=== PATIENT | male | born 1960 | race Caucasian/White ===

== ENCOUNTER 2016-05-24 10:44 | Day surgery (SDC) | payer OTHER ==
[2016-05-24] VITALS (12 sets, daily range): BP systolic 118–165; BP diastolic 71–100; PULSE 54–74; RESP 12–19; Ht 162.6 cm; Wt 69.2 kg
[~2016-05-24] VITALS: Ht 162.6 cm; Wt 69.2 kg
[~2016-05-24 10:44] MED LIST: CEFAZOLIN 1 GM INJ ONE; CEFAZOLIN 1 GM/50 ML (PMX) 50 ML IVPB ONE; CYCL-319 PO; GABA300C16 PO; ROCURONIUM 50 MG INJ ONE
[2016-05-24 11:54] LABS: ADD SCAN DIFF NO
[2016-05-24 12:07] LABS: BASOPHILS % 0.2 % (0.0-2.0); EOSINOPHILS # 0.1 10^3/ul (0.0-0.5); EOSINOPHILS % 1.4 % (0.0-7.0); HEMATOCRIT 41.9 % (42.0-52.0); HEMOGLOBIN 14.3 g/dl (14.0-18.0); LYMPHOCYTES # 1.9 10^3/ul (0.8-2.9); LYMPHOCYTES % 30.1 % (15.0-51.0); MEAN CORPUSCULAR HEMOGLOBIN 30.8 pg (29.0-33.0); MEAN CORPUSCULAR HGB CONC 34.1 g/dl (32.0-37.0); MEAN CORPUSCULAR VOLUME 90.3 fl (82.0-101.0); MEAN PLATELET VOLUME 10.1 fl (7.4-10.4); MONOCYTE # 0.3 10^3/ul (0.3-0.9); MONOCYTES % 4.6 % (0.0-11.0); NEUTROPHILS % 63.4 % (39.0-77.0); PLATELET COUNT 221 10^3/UL (140-415); RED BLOOD COUNT 4.64 10^6/ul (4.70-6.10); RED CELL DISTRIBUTION WIDTH 12.4 % (11.5-14.5); WHITE BLOOD COUNT 6.3 10^3/ul (4.8-10.8)
[2016-05-24] MEDS ORDERED: LIDOCAINE 2% (SDV) 5 ML INJ ONE (14:11)
[2016-05-24] MEDS ORDERED: PROPOFOL 20 ML ONE (14:11)
--- NOTE | 2016-05-24 14:49 | HP ---
DATE OF ADMISSION: 05/24/2016 CHIEF COMPLAINT: Bladder tumor. HISTORY OF PRESENT ILLNESS: This patient has a history of bladder cancer. In 2010 he was diagnosed with superficial urothelial carcinoma of the bladder, low grade. The patient has undergone intermit tent surveillance cystoscopy. In January 2016, a cystoscopy revealed a scalloped raised mucosa rajesh ng the right trigone, posterior bladder wall. This was distal to the ureteral orifice. The patient did not want to have a biopsy of the lesion; however, he is scheduled to undergo a cystoscopy with removal of this neoplasm today. At the time of cystoscopy in my office, the patient requested not t o have the biopsy done while he is awake. He requested to undergo a biopsy under anesthesia. He has not had any recent gross hematuria. The patient does not complain of any dysuria. PAST MEDICAL HISTORY: Bladder cancer. PAST SURGICAL HISTORY: TURBT. MEDICATIONS: None. ALLERGIES: NO KNOWN DRUG ALLERGIES. SOCIAL HISTORY: One pack per day smoking for greater than 40 years. Alcohol occasional. FAMILY HISTORY: Father with prostate cancer. PHYSICAL EXAMINATION: CONSTITUTIONAL: The patient appears to be in no acute distress. GASTROINTESTINAL: Abdomen is soft, normal bowel sounds, nondistended, nontender. Liver and spleen normal. GENITOURINARY: Scrotum no lesions, no edema, no erythema, mass, rash, or cysts. Epididymis symmetr ic, normal size, normal texture, nontender. Urethral meatus normal in size and location. Testes de scended bilaterally. NECK: Normal appearing, symmetric. Normal tracheal position. Thyroid no enlargement. EXTREMITIES: No edema. ASSESSMENT: Neoplasm, uncertain behavior of bladder. PLAN: Cystoscopy with transurethral resection of bladder tumor. This procedure has been explained to the patient in detail. His questions have been discussed. He understands risks include, but are not limited to infection, bleeding, damage to adjacent structures, heart problems, lung problems, p ossibility of need for further surgery, DVT, PE, OR, CVA, nonresolution of symptoms, recurrence of s ymptoms, need for other treatments, need for other surgeries, finding of no cancer in the final spec imen. Frequency, urgency, dysuria. All of his questions have been answered, no guarantees given. He would like to proceed. Dictated By: PASQUALE SINGH MD, SR/NTS Conf#: [id number] [facility]#: [id number]
[2016-05-24] MEDS ORDERED: MEPERIDINE 25 MG INJ IV PRN (15:00)
[2016-05-24] MEDS ORDERED: LABETALOL HCL 20MG INJ IV PRN (15:00)
[2016-05-24] MEDS ORDERED: FENTAnyl 50 MCG/ML VIAL IV PRN ×3 (15:00)
[2016-05-24] MEDS ORDERED: hydrALAzine 20 MG INJ IV PRN (15:00)
[2016-05-24] MEDS ORDERED: HYDROmorphONE (0.2 MG/ML) 10ML SYG IV PRN ×3 (15:00)
[2016-05-24] MEDS ORDERED: EPHEDrine SULFATE 50 MG/5 ML SYG IV PRN (15:00)
[2016-05-24] MEDS ORDERED: ONDANSETRON 4 MG INJ IV PRN (15:00)
[2016-05-24] MEDS ORDERED: OXYCODONE/ACETAMINOPHEN (5/325) TAB PO PRN ×2 (15:00)
--- NOTE | 2016-05-24 15:16 | OPPN ---
Date/Time of Note Date/Time of Note DATE: 05/24/16 TIME: 15:14 Operative/Procedure Note Pre-Operative Diagnosis neoplasm uncertain behavior bladder Post-Operative Diagnosis same Procedure TURBT Surgeon: PASQUALE SINGH Findings 1 cm path erythematous mucosa at right posterior bladder wall raised and scalloped appearing: completely excised Implants/Grafts: Not applicable Estimated blood loss: minimal Drains: Not applicable Specimens right posterior bladder wall biopsy Complications: None Anesthesia type: general PASQUALE SINGH May 24, 2016 15:16
--- NOTE | 2016-05-24 15:18 | PDOCDIS ---
Discharge Instructions CONDITION Patient Condition: Good HOME CARE INSTRUCTIONS: Diet Instructions: Regular ACTIVITY: Activity Restrictions: Slowly Increase Activity Bathing Restrictions: Shower FOLLOW UP/APPOINTMENTS Appointments 1 - [address] razo office SCHOOL/WORK RELEASE May return to School/Work on: May 27, 2016 May return to School/Work with: No Restrictions PASQUALE RAZO May 24, 2016 15:18
--- NOTE | 2016-05-24 15:49 | OPR ---
DATE OF OPERATION: 05/24/2016 PREOPERATIVE DIAGNOSIS: Neoplasm, uncertain behavior of bladder. POSTOPERATIVE DIAGNOSIS: Neoplasm, uncertain behavior of bladder. OPERATION PERFORMED: Transurethral resection of bladder tumor. INDICATIONS FOR PROCEDURE: This patient has a previous history of bladder cancer. On surveillance cystoscopy, he was found to have an erythematous patch of mucosa in the posterior bladder wall media l to the ureteral orifice. He did not want to have his biopsy done wide awake in my office. Theref ore, he is now brought to the operating room for removal of this lesion. Procedure has been explain ed to the patient in detail. Risks and benefits have been discussed. He understands risks to inclu de, but are not limited to infection, bleeding, damage to adjacent structures, heart problems, lung problems, possibility of need for further surgery, DVT, PE, [place], CVA, nonresolution of symptoms, recu rrence of symptoms, need for other treatments, need for other surgeries, bladder injury, urethral in jury and stricture formation. All of his questions have been answered, no guarantees given. He wou ld like to proceed. FINDINGS: A 1 cm patch of erythematous mucosa which appears scalloped and raised was identified rajesh ng the posterior bladder wall. This was medial to the right ureteral orifice and just posterior to the trigone. The entire lesion was removed with the rigid biopsy forceps. PROCEDURE IN DETAIL: The patient was brought to the operating room, underwent general anesthesia. He was placed in the lithotomy position. Abdomen, perineum and genitalia were prepped and draped in usual sterile fashion. A 20 mari Palestinian cystoscope was placed transurethrally. The pre-urethra muñoz d a stricture in the membranous area. This was gently dilated with the cystoscope. Prostate contai kishore bilateral lateral lobe enlargement. Bladder neck was not elevated. Bladder was entered, 1+ tra beculation was identified. A patch of red erythematous mucosa which was raised and scalloped appear ing was identified along the posterior bladder wall. This was located medial to the right ureter an d ureteral orifice and just proximal to the trigone. This patch was about 1 cm in size. No other t umors or patches of erythema were seen within the bladder. 1+ trabeculation was identified. The ri ght ureteral orifice actually contained 2 openings. On the left ureter, there was a scar around the ureteric ridge consistent with previous resection. Left ureteral orifice was orthotopic. The rigid biopsy forceps was used to obtain biopsy resection specimen from the area of abnormality. The entire area was removed using the rigid biopsy forceps. This was removed and sent to pathology for permanent sectioning. The area of biopsy was then cauterized using Bugbee electrode. The surr ounding areas of biopsy were also cauterized with a Bugbee electrode. Ureteral orifices were kept i ntact and well away from the area of treatment. No other abnormalities were seen. Bladder was empt ied. The cystoscope was discontinued. The patient was then placed back in a supine position. He w as awakened, extubated, and taken to recovery room stable. POSTOPERATIVE CONDITION: Stable. COMPLICATIONS: None. BLOOD LOSS: Less than 5 mL. BLOOD ADMINISTERED: None. SPECIMENS SENT TO LAB: Right posterior bladder wall biopsy. Dictated By: PASQUALE SINGH MD, SR/DENNISE Conf#: [id number] DID#: [id number]
--- NOTE | 2016-05-24 16:04 | DS ---
DATE OF ADMISSION: 05/24/2016 DATE OF DISCHARGE: 05/24/2016 ADMITTING DIAGNOSIS: Neoplasm, uncertain behavior of bladder. DISCHARGE DIAGNOSIS: Neoplasm, uncertain behavior of bladder. HOSPITAL COURSE: The patient was admitted to the hospital, underwent transurethral resection of maddison dder tumor. He tolerated the procedure well. He was then transferred to the recovery room. Once p atient was stable, tolerating his diet, remaining afebrile, and pain was well controlled, he was dis charged home. DISCHARGE INSTRUCTIONS: Activity as tolerated. No heavy lifting. The patient may shower. Follow up in 1 to 2 weeks. MEDICATIONS: Omnicef 300 mg p.o. b.i.d. Dictated By: PASQUALE SINGH MD SR/NTS Conf#: [id number] DID#: [id number]
[2016-05-24] MEDS ORDERED: NEOSTIGMINE 3 MG/3 ML SYRINGE ONE (16:43)
[2016-05-24] MEDS ORDERED: GLYCOPYRROLATE 0.4 MG INJ ONE (16:43)
== END 2016-05-24 16:50 | disposition home or self-care (01) ==
LOC: SDS 10:44
PROVIDERS: ATTEND Surgery Surgical Oncology
DX: D49.4 Neoplasm of unspecified behavior of bladder (principal); N30.80 Other cystitis without hematuria
CPT/HCPCS: 52224; 85025; 88305; J0690; J2710; J3010; Z7512; Z7610